=== PATIENT | male | born 1965 | race Caucasian/White ===

== ENCOUNTER 2016-10-03 22:08 | Emergency (ER) | payer BC ==
[~2016-10-03] VITALS: Ht 182.9 cm; Wt 86.5 kg
[~2016-10-03 22:08] MED LIST: ADVAIR 500/501 DISK IH; ATARAX,VISTARIL25 M1 PO; CALCIUM 500 MG1 EACH PO; CYMBALTA30 MG PO; Coumadin,Jantoven PO; DAILY MULTIPLE1 EACH PO; Diabeta,Micronase PO; Flonase BOTH NARES; Glucophage PO; HYZAAR 100-21 TABLET PO; LOSARTAN POTAS100 MG PO; LOVENOX120 MG/0.8 SC; PERCOCET 5/31 TABLET PO; PRAVASTATIN SOD80 MG PO; PROAIR HFA8.5 GM IH; PROTONIX40 MG PO; Proventil,Ventolin H IH; RITALIN20 MG PO; SIMVASTATIN20 MG PO; SINGULAIR10 MG PO; TRICOR145 MG PO; VICTOZA0.6 MG/0.2 SC; VITAMIN B-12250 MCG PO; VITAMIN D-32000 UNI1 PO; [UNRECOGNIZED DRUG - REMARK]; [UNRECOGNIZED DRUG - REMARK] PO; oxyCODONE PO
[2016-10-03 22:33] LABS: HEMATOCRIT 44.8 % (38.0-50.0); MCH 31.7 PG (29.0-34.0); MCV 90.3 FL (86-99); MEAN PLAT.VOLUME 9.3 uM^3 (9.0-12.4); PLATELET COUNT 281 K/uL (156-360); RED BLOOD COUNT 4.96 M/uL (4.00-5.50)
[2016-10-03 22:45] LABS: CHLORIDE 107 mEq/L (99-109); POTASSIUM 3.4 mEq/L (3.7-5.4); SODIUM 140 mEq/L (136-147)
[2016-10-03 22:47] LABS: ADD MIUA? YES; BILIRUBIN NEGATIVE; BLOOD NEGATIVE; COLOR AMBER ((YELLOW)); GLUCOSE (STRIP) NEGATIVE; KETONES NEGATIVE; LEUKOCYTES NEGATIVE; NITRITE NEGATIVE; PROTEIN (STRIP) 100; SPECIFIC GRAVITY 1.028 (1.000-1.030); UROBILINOGEN 0.2 MG/DL (0.2-1.0)
[2016-10-03 22:47] LABS: GLUCOSE 130 mg/dL (70-99)
[2016-10-03 22:49] LABS: ANION GAP 10 MEQ/L (2-14); TOTAL BILIRUBIN 1.1 mg/dL (0.0-1.0)
[2016-10-03 22:51] LABS: ALKALINE PHOSPHATASE 82 IU/L (3-129); GFR ESTIMATE (CALCULATED) > 59 mL/min/
[2016-10-03 22:52] LABS: UREA NITROGEN (BUN) 10 mg/dL (9-23)
[2016-10-03 23:08] LABS: EPITHELIAL CELLS RARE /HPF; MUCUS 3+ /LPF
[2016-10-03 23:09] LABS: BACTERIA 2+ /HPF; CASTS PRESENT /LPF; HYALINE CASTS 0-5 /LPF; RED BLOOD CELLS NONE SEEN /HPF (0-5); UCUL ADDED? NO; WHITE BLOOD CELLS 0-5 /HPF (0-5)
[2016-10-03 23:41] LABS: MONOCYTE (%) 8.6 % (3-12); NEUTROPHIL (%) 67.7 % (45-76)
[2016-10-03 23:43] LABS: BASOPHIL COUNT 0.1 K/uL (0-0.1); EOSINOPHIL (%) 2.7 % (0-5); EOSINOPHIL COUNT 0.3 K/uL (0-0.3); IMMATURE GRANULOCYTE (%) 0.5 % (0.0-0.7); IMMATURE GRANULOCYTE COUNT 0.1 K/uL; LYMPHOCYTE COUNT 2.2 K/uL (1.0-2.8); NEUTROPHIL COUNT 7.5 K/uL (1.8-6.4)
[2016-10-03] MEDS ORDERED: ZOFRAN ODT8 MG PO (23:43)
[2016-10-03] MEDS ORDERED: BENTYL10 MG PO (23:43)
[2016-10-03 23:52] VITALS: BP 153/100
== END 2016-10-04 00:02 | disposition home or self-care (01) ==
LOC: EME 22:08
DX: R11.2 Nausea with vomiting, unspecified (principal); R19.7 Diarrhea, unspecified; R10.9 Unspecified abdominal pain; J45.909 Unspecified asthma, uncomplicated; I10 Essential (primary) hypertension; K21.9 Gastro-esophageal reflux disease without esophagitis; F17.200 Nicotine dependence, unspecified, uncomplicated
CPT/HCPCS: 80053; 81003; 85025; 85027; 99281; 99284; J2405; J7030

== ENCOUNTER 2017-01-16 14:34 | Emergency (ER) | payer BC ==
[~2017-01-16] VITALS: Ht 182.9 cm; Wt 81.2 kg
[~2017-01-16 14:34] MED LIST changes: +BENTYL10 MG PO; +ZOFRAN ODT8 MG PO
[2017-01-16] MEDS ORDERED: NORCO 5/3251 TABLET PO (16:29)
[2017-01-16] MEDS ORDERED: KEFLEX500 MG PO (16:29)
[2017-01-16 16:35] VITALS: BP 156/89
== END 2017-01-16 16:48 | disposition home or self-care (01) ==
LOC: EME 14:34
PROC: 3E0234Z Introduction of Serum, Toxoid and Vaccine into Muscle, Percutaneous Approach (ICD-10-PCS; principal; 2017-01-16)
DX: S61.314A Laceration without foreign body of right ring finger with damage to nail, initial encounter (principal); I10 Essential (primary) hypertension; Z23 Encounter for immunization; W29.0XXA Contact with powered kitchen appliance, initial encounter; J45.909 Unspecified asthma, uncomplicated; F17.200 Nicotine dependence, unspecified, uncomplicated
CPT/HCPCS: 73130; 99281; 99284; S0020